=== PATIENT | female | born 1990 | race Two or more races ===

== ENCOUNTER 2021-02-22 08:30 | Emergency (ER) | payer BC, OTHER ==
[~2021-02-22] VITALS: Ht 154.9 cm; Wt 59.0 kg
[2021-02-22 08:46] VITALS: BP 108/71
[2021-02-22 09:56] LABS: Urine Bacteria NONE SEEN /hpf (None Seen); Urine Blood 3+ /uL (Negative); Urine Mucus FEW (None Seen); Urine Specific Gravity 1.016 (1.001-1.035); Urine WBC 353 /hpf (0 - 5)
== END 2021-02-22 11:04 | disposition home or self-care (01) ==
LOC: ER 08:30
DX: N39.0 Urinary tract infection, site not specified (principal)
CPT/HCPCS: 74176; 81001; 81025

== ENCOUNTER 2021-02-27 16:06 | Emergency (ER) | payer BC ==
[~2021-02-27] VITALS: Ht 154.9 cm; Wt 59.0 kg
[2021-02-27 16:44] LABS: Urine WBC None Seen /hpf (0 - 5)
[2021-02-27 16:50] VITALS: BP 135/88
[2021-02-27 16:56] LABS: Urine Bacteria NONE SEEN /hpf (None Seen); Urine Blood 3+ /uL (Negative); Urine Mucus FEW (None Seen)
[2021-02-27 16:58] LABS: Basophils # (auto) 0.1 10 ^3/uL (0-0.2); Basophils % (auto) 0.6 % (0.0-2.0); Eosinophils # (auto) 0.1 10 ^3/uL (0-0.8); Eosinophils % (auto) 0.6 % (0.0-7.0); Hemoglobin 13.4 g/dL (12.2-16.2); Lymphocytes # (auto) 2.2 10 ^3/uL (0.4-5.4); Lymphocytes % (auto) 24.5 % (10.0-50.0); Mean Corpuscular Hemoglobin 28.7 pg (28.0-32.0); Mean Corpuscular Hgb Conc. 33.5 g/dL (32.0-36.0); Mean Corpuscular Volume 85.6 fL (80.0-100.0); Monocytes # (auto) 0.7 10 ^3/uL (0-1.3); Monocytes % (auto) 7.6 % (0.0-12.0); Neutrophils % (auto) 66.7 % (37.0-80.0); Nucleated Red Blood Cells % 0.1 %; Red Blood Cells 4.67 10^6/uL (4.0-5.20); Red Cell Distribution Width 12.9 % (11.8-14.3)
[2021-02-27 17:16] LABS: Albumin 3.9 g/dL (3.4-5.0); Calcium 8.2 mg/dL (8.5-10.1); Potassium 3.8 mmol/L (3.5-5.1)
[2021-02-27] MEDS ORDERED: NITR-87 PO (17:18)
[2021-02-27] MEDS ORDERED: PERCOT PO (17:18)
[2021-02-27 17:19] LABS: BUN/Creatinine Ratio 15.4; Bilirubin, Total 0.5 mg/dL (0.2-1.0); Total Protein 7.5 g/dL (6.4-8.2)
== END 2021-02-27 18:27 | disposition home or self-care (01) ==
LOC: EDBD 16:06 → ER 16:06
DX: N39.0 Urinary tract infection, site not specified (principal)
CPT/HCPCS: 36415; 74176; 80053; 81001; 85025